=== PATIENT | male | born 2000 | race Caucasian/White ===

== ENCOUNTER 2021-07-08 13:30 | Outpatient (CLI) | payer OTHER, SELFPAY ==
[2021-07-08 14:39] LABS: SARS-CoV-2 RNA PCR Positive (Negative)
== END 2021-07-08 13:31 | disposition home or self-care (01) ==
LOC: CHSLAB 13:34
PROVIDERS: PCP Internal Medicine; Visit Provider Internal Medicine
DX: U07.1 COVID-19 (principal)
CPT/HCPCS: C9803; U0003; U0005

== ENCOUNTER 2024-05-02 16:07 | Outpatient (CLI) | payer OTHER, SELFPAY ==
--- NOTE | ~2024-05-02 | XR_ITS ---
XR chest 2V Ordering provider: Marni Chopra, [employer] History: 24 years Male with . LEFT PECTORAL PAIN AFTER LANDING ON A FOOTBALL . Comparison: None. FINDINGS: MEDIASTINUM: The cardiac silhouette is not enlarged. LUNGS: No infiltrates, effusions or pneumothorax. Granuloma in the right lower lobe area. OTHER: No free air under the diaphragm. IMPRESSION: No acute cardiopulmonary pathology. Reviewed, dictated and finalized at location A.
== END 2024-05-02 16:08 | disposition home or self-care (01) ==
LOC: CHSIMG 16:14
PROVIDERS: PCP Internal Medicine; Visit Provider Nurse Practitioner Family
DX: S20.212A Contusion of left front wall of thorax, initial encounter (principal)
CPT/HCPCS: 71046